=== PATIENT | male | born 1955 | race Caucasian/White ===

== ENCOUNTER 2018-12-17 14:35 | Emergency (ER) | payer OTHER ==
[~2018-12-17] VITALS: Ht 182.9 cm; Wt 80.0 kg
[~2018-12-17 14:35] MED LIST: ALLOPURINOL100 MG PO; CEPHALEXIN500 MG PO; KEFLEX500 MG OR; LORTAB5 PO
[2018-12-17 15:16] LABS: HEMATOCRIT 36.7 % (39.0-50.0); IMMATURE GRANULOCYTES 0.5 % (0.0-5.0); MEAN CELL VOLUME 98.4 fL CALC (80.0-100.0); MEAN CORPUSCULAR HGB 34.9 pG CALC (26.0-32.0); MEAN CORPUSCULAR HGB CONC 35.4 g/L CALC (32.0-36.0); NEUT# 4.31 thou/uL (1.82-7.42); RED BLOOD COUNT 3.73 mill/uL (4.70-6.10); RED CELL DISTRI WIDTH 13.2 % (11.5-15.5)
[2018-12-17 15:39] LABS: ALBUMIN 3.8 g/dL (3.2-5.0); ALKALINE PHOSPHATASE 84 u/l (38-126); ANION GAP 13 (6-22 (CALC)); BILIRUBIN, TOTAL 1.1 mg/dL (0.0-1.4); BUN 6 mg/dL (8-23); BUN/CREATININE RATIO 10 (12-20 (CALC)); CARBON DIOXIDE 26 mmol/l (22-30); CHLORIDE 97 mmol/l (95-108); CREATININE 0.6 mg/dL (0.7-1.3); GFR > 60 ML/MIN (>=60 (CALC)); GFR FOR AFR.AMER. > 60 ML/MIN (>=60 (CALC)); POTASSIUM 3.5 mmol/l (3.5-5.1); SGOT/AST 14 u/l (19-48); SODIUM 132 mmol/l (137-146); TOTAL PROTEIN 6.5 g/dL (6.3-8.2)
[2018-12-17] MEDS ORDERED: HYDROCO/APAP1 TA9 PO (16:19)
[2018-12-17 16:30] VITALS: BP 137/80
== END 2018-12-17 16:37 | disposition home or self-care (01) | DRG 563 ==
LOC: ED 14:35
DX: S82.141A Displaced bicondylar fracture of right tibia, initial encounter for closed fracture (principal); M10.9 Gout, unspecified; F17.210 Nicotine dependence, cigarettes, uncomplicated; X58.XXXA Exposure to other specified factors, initial encounter
CPT/HCPCS: L1830